=== PATIENT | male | born 1950 | race Caucasian/White ===

== ENCOUNTER → 2016-10-02 | Day surgery (SDC) | payer MEDICARE, OTHER | END | disposition home or self-care (01) | LOC: SDC 11:32 | DX: N35.9 Urethral stricture, unspecified (principal); C60.9 Malignant neoplasm of penis, unspecified; N40.0 Benign prostatic hyperplasia without lower urinary tract symptoms; I10 Essential (primary) hypertension; E11.9 Type 2 diabetes mellitus without complications; K21.9 Gastro-esophageal reflux disease without esophagitis; Z91.041 Radiographic dye allergy status; Z90.49 Acquired absence of other specified parts of digestive tract | CPT/HCPCS: C1758; C1894; J1580; J2704; Q9967 ==